=== PATIENT | female | born 1955 | race Caucasian/White ===

== ENCOUNTER 2016-04-10 13:23 | Emergency (ER) | payer OTHER ==
[2016-04-10 14:23] LABS: BASO % 0.4 % (0.0-1.0); EOS # 0.1 K/mm3 (0.0-0.50); EOS % 1.6 % (0.0-3.0); LARGE UNSTAINED CELL # 0.1 K/mm3 (0.0-0.4); LARGE UNSTAINED CELL % 2.5 % (0.0-4.0); LYMPH # 1.1 K/mm3 (1.5-4.5); LYMPH % 22.8 % (24.0-44.0); MEAN CORPUSCULAR HEMOGLOBIN 31.2 pg (27.0-33.0); MEAN CORPUSCULAR HGB CONC 33.1 g/dl (32.0-36.5); MEAN CORPUSCULAR VOLUME 94.2 fl (80.0-96.0); MONO # 0.4 K/mm3 (0.0-0.8); MONO % 7.5 % (0.0-5.0); NEUTROPHILS # 3.3 K/mm3 (1.8-7.7); NEUTROPHILS % 65.2 % (36.0-66.0); PLATELET COUNT, AUTOMATED 263 k/mm3 (150-450); RED CELL DISTRIBUTION WIDTH 11.9 % (11.5-14.5)
[2016-04-10 14:42] LABS: ANION GAP 7 MEQ/L (8-16); BLOOD UREA NITROGEN 14 MG/DL (7-18); CALCIUM LEVEL 8.6 MG/DL (8.8-10.2); CARBON DIOXIDE LEVEL 27 MEQ/L (21-32); CHLORIDE LEVEL 107 MEQ/L (98-107); CREATININE FOR GFR 0.52 MG/DL (0.55-1.02); GLOMERULAR FILTRATION RATE > 60.0 (>45); GLUCOSE, FASTING 96 MG/DL (80-110); MAGNESIUM LEVEL 2.1 MG/DL (1.8-2.4); POTASSIUM SERUM 3.8 MEQ/L (3.5-5.1); SODIUM LEVEL 141 MEQ/L (136-145); T UPTAKE 33 % (30-39); THYROXINE (T4) 12.1 UG/DL (4.5-12.0)
--- NOTE | 2016-04-10 15:16 | REP ---
CHEST X-RAY PA AND LATERAL: 04/10/2016 CLINICAL HISTORY: 60-year-old female with chest pain. No comparison study. FINDINGS: The two-view show the lungs well inflated and clear. CP angles sharply defined. No lateral pleural thickening, apical scarring or pneumothorax. There is no nodular mass. The heart, mediastinal and hilar contours are intact. The aorta is slightly calcified at the arch without aneurysm. Airway intact. The bony thorax shows no compression deformity or focal lesion. No free air under the diaphragm. IMPRESSION: 1. No acute cardiopulmonary change. Signed by Scott Mtz MD 04/10/2016 05:59 P
--- NOTE | 2016-04-10 15:16 | EDDOCDS ---
Nurse's Notes [facility] Name: Deana Ledezma Age: 60 yrs Sex: Female : 1955 Arrival Date: 04/10/2016 Time: 13:23 Bed 21 Private MD: Carmela Ahmadi A Diagnosis: Palpitations Presentation: 04/10 13:40 Presenting complaint: Patient states: palpitations started yesterday- more frequent. srm has had sporadic palpitations over years. denies chest pain. no SOB. today bp going up and HR staying above 100. Adult Sepsis Screening: The patient does not have new or worsening altered mentation. Patient's respiratory rate is less than 22. Systolic blood pressure is greater than 100. Patient has a qSOFA score of 0- Negative Sepsis Screen. Suicide/Homicide risk assessment- the patient denies having any suicidal and/or homicidal ideations and does not present with any other emotional, behavioral or mental health complaints. Status: Patient is not a direct service provider or dependent. Transition of care: patient was not received from another setting of care. 13:40 Acuity: RADHA Level 2 [facility] 13:40 Method Of Arrival: Walkin/Carried/Asstd [facility] Triage Assessment: 13:45 General: Appears in no apparent distress, Behavior is appropriate for age, cooperative. srm Pain: Pain currently is 4 out of 10 on a pain scale. HIV screening NA for this visit Offered previously. Cardiovascular: Rhythm is sinus rhythm. Historical: - Allergies: no known allergies; - Home Meds: 1. levothyroxine 75 mcg Oral tab 1 tab once daily 2. aspirin 81 mg Oral tab 1 tab once daily (Last dose: 04/09/2016 22:00) 3. Restasis 0.05 % ophthalmic dpet 1 drop 2 times per day 4. Nexium 20 mg Oral cpDR prn 5. clobetasol cream couple of times a week - PMHx: Thyroid problem; GERD; Migraine Headaches; - PSHx: ; - Social history: Smoking status: Patient states was never smoker of tobacco. No barriers to communication noted, The patient speaks fluent Romanian, Speaks appropriately for age. - Family history: Not pertinent. - : The pt / caregiver states he / she is not on anticoagulants. Home medication list is obtained from the patient. - Exposure Risk Screening:: None identified. Screenin:09 Screening information is obtained from the patient. Fall risk: No risks identified. pml Assistance ADL's: requires no assistance with activities of daily living. Abuse/DV Screen: The patient / caregiver reports he/she is: not in a situation that causes fear, pain or injury. Nutritional screening: No deficits noted. Advance Directives: Currently, there is no health care proxy. home support is adequate. Assessment: 14:09 General: Appears in no apparent distress, Behavior is appropriate for age, cooperative. pml Pain: Denies pain. Neurological: Level of Consciousness is awake, alert, Oriented to person, place, time. Neurological: Denies dizziness. Cardiovascular: Capillary refill < 3 seconds Rhythm is sinus rhythm. Respiratory: Airway is patent Respiratory effort is even, unlabored, Denies shortness of breath. GI: Abdomen is non- distended Denies nausea. Derm: Skin is pink, warm & dry. 15:14 General: Appears in no apparent distress, comfortable, Behavior is appropriate for age, dsf cooperative. Pain: Denies pain. Neurological: Level of Consciousness is awake, alert. Cardiovascular: Capillary refill < 3 seconds Reports irregular beats. Respiratory: Airway is patent Respiratory effort is even, unlabored, Respiratory pattern is regular, symmetrical. Derm: Skin is pink, warm & dry. Vital Signs: 13:24 BP 157 / 75; Pulse 98; Resp 18 S; Temp 98.1(O); Pulse Ox 99% on R/A; Weight 68.04 kg gr2 (R); Height 5 ft. 3 in. (160.02 cm) (R); Pain 2/10; 15:14 BP 143 / 65; Pulse 90; Resp 18; Temp 98.2(O); Pulse Ox 96% on R/A; lr2 13:24 Body Mass Index 26.57 (68.04 kg, 160.02 cm) gr2 Vitals: 13:24 Log In Time: April 10, 2016 at 13:24. RN notified that patient meets Red Flag gr2 criteria. ED Course: 13:23 Patient visited by Alexei Mancilla. gr2 13:23 Carmela Ahmadi is Private Physician. gr2 13:23 Patient moved to Waiting gr2 13:33 Patient visited by lAexei Mancilla. gr2 13:33 Patient moved to Pre RCE gr2 13:35 Patient moved to 21 [facility] 13:42 Triage Initiated srm 13:45 Patient visited by Aishwarya Mchugh, DEANDRE. srm 13:45 The patient / caregiver is instructed regarding the plan of care and ED course. Patient annita has correct armband on for positive identification. Placed in gown. Bed in low position. Call light in reach. Side rails up X 1. compliance monitor on. Pulse ox on. NIBP on. 13:47 compliance monitor on. Pulse ox on. NIBP on. lr2 13:48 EKG done. (by ED staff). lr2 14:09 Inserted peripheral IV: 20gauge IV in right antecubital area and blood collected. pml Patient tolerated the procedure well. 14:10 Patient visited by Kortney Zaragoza RN. pml 14:18 Michael Thomason FNP is PHCP. ke 14:18 Patient visited by Michael Thomason FNP. ke 14:18 Patient visited by Michael Thomason FNP. ke 14:52 Patient visited by Michael Thomason FNP. ke 15:03 Soham Cedeno is Referral Physician. ke 15:14 Discontinued lock intact, bleeding controlled, pressure dressing applied, No dsf redness/swelling at site. No procedures done that require assistance. 15:15 Patient visited by Racquel Moseley. lr2 Order Results: Lab Order: Basic Metabolic Profile; SPEC'M 04/10/16 14:10 Test: GLUCOSE, FASTING; Value: 96; Range: 80-110; Units: MG/DL; Status: F Test: BLOOD UREA NITROGEN; Value: 14; Range: 7-18; Units: MG/DL; Status: F Test: CREATININE FOR GFR; Value: 0.52; Range: 0.55-1.02; Abnormal: Below low normal; Units: MG/DL; Status: F Test: GLOMERULAR FILTRATION RATE; Value: > 60.0; Range: >45; Status: F Test: SODIUM LEVEL; Value: 141; Range: 136-145; Units: MEQ/L; Status: F Test: POTASSIUM SERUM; Value: 3.8; Range: 3.5-5.1; Units: MEQ/L; Status: F Test: CHLORIDE LEVEL; Value: 107; Range: 98-107; Units: MEQ/L; Status: F Test: CARBON DIOXIDE LEVEL; Value: 27; Range: 21-32; Units: MEQ/L; Status: F Test: ANION GAP; Value: 7; Range: 8-16; Abnormal: Below low normal; Units: MEQ/L; Status: F Test: CALCIUM LEVEL; Value: 8.6; Range: 8.8-10.2; Abnormal: Below low normal; Units: MG/DL; Status: F Test Note: ; Units are mL/min/1.73 m2 Chronic Kidney Disease Staging per NKF: Stage I & II GFR >=60 Normal to Mildly Decreased Stage III GFR 30-59 Moderately Decreased Stage IV GFR 15-29 Severely Decreased Stage V GFR <15 Very Little GFR Left ESRD GFR <15 on FINANCIAL WELLNESS COACH Lab Order: CBC with Diff; SPEC'M 04/10/16 14:10 Test: WHITE BLOOD COUNT; Value: 5.0; Range: 4.0-10.0; Units: K/mm3; Status: F Test: RED BLOOD COUNT; Value: 4.16; Range: 4.00-5.40; Units: M/mm3; Status: F Test: HEMOGLOBIN; Value: 13.0; Range: 12.0-16.0; Units: g/dl; Status: F Test: HEMATOCRIT; Value: 39.2; Range: 36.0-47.0; Units: %; Status: F Test: MEAN CORPUSCULAR VOLUME; Value: 94.2; Range: 80.0-96.0; Units: fl; Status: F Test: MEAN CORPUSCULAR HEMOGLOBIN; Value: 31.2; Range: 27.0-33.0; Units: pg; Status: F Test: MEAN CORPUSCULAR HGB CONC; Value: 33.1; Range: 32.0-36.5; Units: g/dl; Status: F Test: RED CELL DISTRIBUTION WIDTH; Value: 11.9; Range: 11.5-14.5; Units: %; Status: F Test: PLATELET COUNT, AUTOMATED; Value: 263; Range: 150-450; Units: k/mm3; Status: F Test: NEUTROPHILS %; Value: 65.2; Range: 36.0-66.0; Units: %; Status: F Test: LYMPH %; Value: 22.8; Range: 24.0-44.0; Abnormal: Below low normal; Units: %; Status: F Test: MONO %; Value: 7.5; Range: 0.0-5.0; Abnormal: Above high normal; Units: %; Status: F Test: EOS %; Value: 1.6; Range: 0.0-3.0; Units: %; Status: F Test: BASO %; Value: 0.4; Range: 0.0-1.0; Units: %; Status: F Test: LARGE UNSTAINED CELL %; Value: 2.5; Range: 0.0-4.0; Units: %; Status: F Test: NEUTROPHILS #; Value: 3.3; Range: 1.8-7.7; Units: K/mm3; Status: F Test: LYMPH #; Value: 1.1; Range: 1.5-4.5; Abnormal: Below low normal; Units: K/mm3; Status: F Test: MONO #; Value: 0.4; Range: 0.0-0.8; Units: K/mm3; Status: F Test: EOS #; Value: 0.1; Range: 0.0-0.50; Units: K/mm3; Status: F Test: BASO #; Value: 0.0; Range: 0.0-0.2; Units: K/mm3; Status: F Test: LARGE UNSTAINED CELL #; Value: 0.1; Range: 0.0-0.4; Units: K/mm3; Status: F Lab Order: Cardiac Injury Profile; SPEC'M 04/10/16 14:10 Test: CPK CREATINE PHOSPHOKINASE; Value: 79; Range: 26-192; Units: U/L; Status: F Test: CK-MB VALUE MASS; Value: 1.3; Range: 0.0-3.6; Units: NG/ML; Status: F Test: MB/CK RELATIVE INDEX; Value: 1.64; Range: < OR =4; Status: F Test Note: ; DIAGNOSIS CRITERIA MMB ng/ml Relative Index (RI) NON-AMI < or = 5 N/A TERRY ZONE > 5 < or = 4 AMI > 5 > 4 Lab Order: Troponin; SPEC'M 04/10/16 14:10 Test: TROPONIN I; Value: < 0.02; Range: < 0.10; Units: NG/ML; Status: F Test Note: ; Troponin I Reference Interval for [employer] LOCI: 99th Percentile= 0.00-0.045 ng/ml Risk Stratification: <= 0.10 ng/ml Decreased Risk for Adverse Clinical Events. 0.10-1.50 ng/ml Increased Risk for Adverse Clinical Events. Evaluation of additional criterion and/or repeat testing in 2-6 hours is suggested to rule out myocardial damage. >= 1.50 ng/ml Indicative of Myocardial Injury. Lab Order: MAGNESIUM LEVEL; SPEC'M 04/10/16 14:10 Test: MAGNESIUM LEVEL; Value: 2.1; Range: 1.8-2.4; Units: MG/DL; Status: F Lab Order: THYROID PROFILE; SPEC'M 04/10/16 14:10 Test: T UPTAKE; Value: 33; Range: 30-39; Units: %; Status: F Test: THYROXINE (T4); Value: 12.1; Range: 4.5-12.0; Abnormal: Above high normal; Units: UG/DL; Status: F Test: FREE THYROXINE INDEX; Value: 4.0; Range: 1.3-4.8; Units: %; Status: F Test: THYROID STIMULATING HORMONE; Value: 2.020; Range: 0.358-3.740; Units: uIU/ML; Status: F Outcome: 15:04 Discharge ordered by Provider. ke 15:15 Discharge Assessment: Patient awake, alert and oriented x 3. No cognitive and/or dsf functional deficits noted. Patient verbalized understanding of disposition instructions. patient administered narcotics - no. The following High Risk Discharge criteria are identified: None. Discharged to home ambulatory, with significant other. Condition: good. Discharge instructions given to patient, significant other, Instructed on discharge instructions, follow up and referral plans. Demonstrated understanding of instructions, Pt was receptive of discharge instructions/ teaching. No special radiology studies were completed. Property sent home with patient. 15:15 Patient left the ED. dsf Signatures: Aishwarya Mchugh, RN Michael Bartlett FNP FNP ke Fuller, Desiree, RN RN dsf Quay, Paulina, RN RN pml Hafner, Jane, RN RN [facility] Alexei Mancilla 2 Ross, Racquel lr2 MTDD
--- NOTE | 2016-04-10 15:16 | EDDOCDS ---
Physician Documentation [facility] Name: Deana Ledezma Age: 60 yrs Sex: Female : 1955 Arrival Date: 04/10/2016 Time: 13:23 Bed 21 Private MD: Carmela Ahmadi A Disposition: 04/10/16 15:04 Discharged to Home/Self Care. Impression: Palpitations. - Condition is Stable. - Discharge Instructions: Palpitations. - Medication Reconciliation, Local Pharmacy Hours form. - Follow up: Soahm Cedeno; When: Call to arrange an appointment; Reason: Recheck today's complaints, Continuance of care. - Problem is an ongoing problem. - Symptoms are unchanged. Historical: - Allergies: no known allergies; - Home Meds: 1. levothyroxine 75 mcg Oral tab 1 tab once daily 2. aspirin 81 mg Oral tab 1 tab once daily (Last dose: 04/09/2016 22:00) 3. Restasis 0.05 % ophthalmic dpet 1 drop 2 times per day 4. Nexium 20 mg Oral cpDR prn 5. clobetasol cream couple of times a week - PMHx: Thyroid problem; GERD; Migraine Headaches; - PSHx: ; - Social history: Smoking status: Patient states was never smoker of tobacco. No barriers to communication noted, The patient speaks fluent [place], Speaks appropriately for age. - Family history: Not pertinent. - : The pt / caregiver states he / she is not on anticoagulants. Home medication list is obtained from the patient. - Exposure Risk Screening:: None identified. Vital Signs: 04/10 13:24 BP 157 / 75; Pulse 98; Resp 18 S; Temp 98.1(O); Pulse Ox 99% on R/A; Weight 68.04 kg / gr2 150 lbs (R); Height 5 ft. 3 in. (160.02 cm) (R); Pain 2/10; 15:14 BP 143 / 65; Pulse 90; Resp 18; Temp 98.2(O); Pulse Ox 96% on R/A; lr2 13:24 Body Mass Index 26.57 (68.04 kg, 160.02 cm) gr2 MDM: 13:37 ECG WITH READING ER PHYS+CARDIAG ordered. EDMS 14:08 Career And Guidance Counselor/Pulse Ox/q 30 min VS ordered. pml 14:08 IV Saline Lock ordered. pml 14:08 Rhythm Strip to chart ordered. pml 14:08 Undress patient appropriately for examination ordered. pml 14:10 Basic Metabolic Profile Ordered. EDMS 14:10 CBC with Diff Ordered. EDMS 14:10 Cardiac Injury Profile Ordered. EDMS 14:10 Troponin Ordered. EDMS 14:20 Chest, 2 View (pa\E\lat) Ordered. EDMS 14:26 MAGNESIUM LEVEL Ordered. EDMS 14:26 THYROID PROFILE Ordered. EDMS 14:46 Basic Metabolic Profile Reviewed. ke 14:46 CBC with Diff Reviewed. ke 14:46 Troponin Reviewed. ke 14:46 MAGNESIUM LEVEL Reviewed. ke Signatures: Dispatcher [employer] EDAishwarya Henderson, RN RN Michael Lovell, CHIEF CONTROLLER CENTER CHIEF CONTROLLER CENTERLora Swain RN RN dsf Quay, Paulina, RN RN pml The chart was reviewed and I authenticate all verbal orders and agree with the evaluation and treatment provided.Corrections: (The following items were deleted from the chart) 14:26 14:20 THYROID PROFILE+LAB ordered. EDMS EDMS 14:26 14:20 MAGNESIUM LEVEL+LAB ordered. EDMS EDMS MTDD
--- NOTE | 2016-04-11 08:24 | ECGEPIP ---
Stationary ECG Study [facility] - ED Test Date: 2016-04-10 Pat Name: CARLO DOCKERY Department: Room: - Gender: F [id number] Software Engineer: chetan : 1955 Requested By: LEW Wiseman Order Number: [id number] Reading MD: Charlene Gtz Measurements Intervals [place] Rate: 88 P: 59 IN: 150 QRS: -1 QRSD: 82 T: 34 QT: 357 QTc: 434 Interpretive Statements SINUS RHYTHM POSSIBLE LEFT ATRIAL ENLARGEMENT NO PRIOR FOR COMPARISON Electronically Signed On 04-11-2016 8:23:50 EST by Charlene Gtz
--- NOTE | 2016-04-12 16:16 | EDDOCDS ---
Nurse's Notes [facility] Name: Deana Ledezma Age: 60 yrs Sex: Female : 1955 Arrival Date: 04/10/2016 Time: 13:23 Bed 21 Private MD: Carmela Ahmadi A Diagnosis: Palpitations Presentation: 04/10 13:40 Presenting complaint: Patient states: palpitations started yesterday- more frequent. srm has had sporadic palpitations over years. denies chest pain. no SOB. today bp going up and HR staying above 100. Adult Sepsis Screening: The patient does not have new or worsening altered mentation. Patient's respiratory rate is less than 22. Systolic blood pressure is greater than 100. Patient has a qSOFA score of 0- Negative Sepsis Screen. Suicide/Homicide risk assessment- the patient denies having any suicidal and/or homicidal ideations and does not present with any other emotional, behavioral or mental health complaints. Status: Patient is not a product manager financial services or dependent. Transition of care: patient was not received from another setting of care. 13:40 Acuity: RADHA Level 2 [facility] 13:40 Method Of Arrival: Walkin/Carried/Asstd [facility] Triage Assessment: 13:45 General: Appears in no apparent distress, Behavior is appropriate for age, cooperative. srm Pain: Pain currently is 4 out of 10 on a pain scale. HIV screening NA for this visit Offered previously. Cardiovascular: Rhythm is sinus rhythm. Historical: - Allergies: no known allergies; - Home Meds: 1. levothyroxine 75 mcg Oral tab 1 tab once daily 2. aspirin 81 mg Oral tab 1 tab once daily (Last dose: 04/09/2016 22:00) 3. Restasis 0.05 % ophthalmic dpet 1 drop 2 times per day 4. Nexium 20 mg Oral cpDR prn 5. clobetasol cream couple of times a week - PMHx: Thyroid problem; GERD; Migraine Headaches; - PSHx: ; - Social history: Smoking status: Patient states was never smoker of tobacco. No barriers to communication noted, The patient speaks fluent Czech, Speaks appropriately for age. - Family history: Not pertinent. - : The pt / caregiver states he / she is not on anticoagulants. Home medication list is obtained from the patient. - Exposure Risk Screening:: None identified. Screenin:09 Screening information is obtained from the patient. Fall risk: No risks identified. pml Assistance ADL's: requires no assistance with activities of daily living. Abuse/DV Screen: The patient / caregiver reports he/she is: not in a situation that causes fear, pain or injury. Nutritional screening: No deficits noted. Advance Directives: Currently, there is no health care proxy. home support is adequate. Assessment: 14:09 General: Appears in no apparent distress, Behavior is appropriate for age, cooperative. pml Pain: Denies pain. Neurological: Level of Consciousness is awake, alert, Oriented to person, place, time. Neurological: Denies dizziness. Cardiovascular: Capillary refill < 3 seconds Rhythm is sinus rhythm. Respiratory: Airway is patent Respiratory effort is even, unlabored, Denies shortness of breath. GI: Abdomen is non- distended Denies nausea. Derm: Skin is pink, warm & dry. 15:14 General: Appears in no apparent distress, comfortable, Behavior is appropriate for age, dsf cooperative. Pain: Denies pain. Neurological: Level of Consciousness is awake, alert. Cardiovascular: Capillary refill < 3 seconds Reports irregular beats. Respiratory: Airway is patent Respiratory effort is even, unlabored, Respiratory pattern is regular, symmetrical. Derm: Skin is pink, warm & dry. Vital Signs: 13:24 BP 157 / 75; Pulse 98; Resp 18 S; Temp 98.1(O); Pulse Ox 99% on R/A; Weight 68.04 kg gr2 (R); Height 5 ft. 3 in. (160.02 cm) (R); Pain 2/10; 15:14 BP 143 / 65; Pulse 90; Resp 18; Temp 98.2(O); Pulse Ox 96% on R/A; lr2 13:24 Body Mass Index 26.57 (68.04 kg, 160.02 cm) gr2 Vitals: 13:24 Log In Time: April 10, 2016 at 13:24. RN notified that patient meets Red Flag gr2 criteria. ED Course: 13:23 Patient visited by Alexei Mancilla. gr2 13:23 Carmela Ahmadi is Private Physician. gr2 13:23 Patient moved to Waiting gr2 13:33 Patient visited by Alexei Mancilla. gr2 13:33 Patient moved to Pre RCE gr2 13:35 Patient moved to 21 [facility] 13:42 Triage Initiated srm 13:45 Patient visited by Aishwarya Mchugh, DEANDRE. srm 13:45 The patient / caregiver is instructed regarding the plan of care and ED course. Patient annita has correct armband on for positive identification. Placed in gown. Bed in low position. Call light in reach. Side rails up X 1. classroom monitor on. Pulse ox on. NIBP on. 13:47 classroom monitor on. Pulse ox on. NIBP on. lr2 13:48 EKG done. (by ED staff). lr2 14:09 Inserted peripheral IV: 20gauge IV in right antecubital area and blood collected. pml Patient tolerated the procedure well. 14:10 Patient visited by Kortney Zaragoza,DEANDRE. pml 14:18 Michael Thomason FNP is PHCP. ke 14:18 Patient visited by Michael Thomason FNP. ke 14:18 Patient visited by Michael Thomason FNP. ke 14:52 Patient visited by Michael Thomason FNP. ke 15:03 Soham Cedeno is Referral Physician. ke 15:14 Discontinued lock intact, bleeding controlled, pressure dressing applied, No dsf redness/swelling at site. No procedures done that require assistance. 15:15 Patient visited by Racquel Moseley. lr2 15:17 Chest, 2 View (pa\E\lat) Returned. EDMS 15:46 [facility] Payment Agreement was scanned into [employer] and attached to record. lg 15:58 T-Sheet-- Draft Copy was scanned into [employer] and attached to record. klr 04/11 08:57 EKG-ADULT Returned. EDMS 10:11 ECG/EKG was scanned into [employer] and attached to record. gb 10:11 Trend VS was scanned into [employer] and attached to record. gb Attachments: 10:11 Trend VS gb Order Results: Lab Order: Basic Metabolic Profile; SPEC'M 04/10/16 14:10 Test: GLUCOSE, FASTING; Value: 96; Range: 80-110; Units: MG/DL; Status: F Test: BLOOD UREA NITROGEN; Value: 14; Range: 7-18; Units: MG/DL; Status: F Test: CREATININE FOR GFR; Value: 0.52; Range: 0.55-1.02; Abnormal: Below low normal; Units: MG/DL; Status: F Test: GLOMERULAR FILTRATION RATE; Value: > 60.0; Range: >45; Status: F Test: SODIUM LEVEL; Value: 141; Range: 136-145; Units: MEQ/L; Status: F Test: POTASSIUM SERUM; Value: 3.8; Range: 3.5-5.1; Units: MEQ/L; Status: F Test: CHLORIDE LEVEL; Value: 107; Range: 98-107; Units: MEQ/L; Status: F Test: CARBON DIOXIDE LEVEL; Value: 27; Range: 21-32; Units: MEQ/L; Status: F Test: ANION GAP; Value: 7; Range: 8-16; Abnormal: Below low normal; Units: MEQ/L; Status: F Test: CALCIUM LEVEL; Value: 8.6; Range: 8.8-10.2; Abnormal: Below low normal; Units: MG/DL; Status: F Test Note: ; Units are mL/min/1.73 m2 Chronic Kidney Disease Staging per NKF: Stage I & II GFR >=60 Normal to Mildly Decreased Stage III GFR 30-59 Moderately Decreased Stage IV GFR 15-29 Severely Decreased Stage V GFR <15 Very Little GFR Left ESRD GFR <15 on DIRECTOR PROSPECT Lab Order: CBC with Diff; SPEC'M 04/10/16 14:10 Test: WHITE BLOOD COUNT; Value: 5.0; Range: 4.0-10.0; Units: K/mm3; Status: F Test: RED BLOOD COUNT; Value: 4.16; Range: 4.00-5.40; Units: M/mm3; Status: F Test: HEMOGLOBIN; Value: 13.0; Range: 12.0-16.0; Units: g/dl; Status: F Test: HEMATOCRIT; Value: 39.2; Range: 36.0-47.0; Units: %; Status: F Test: MEAN CORPUSCULAR VOLUME; Value: 94.2; Range: 80.0-96.0; Units: fl; Status: F Test: MEAN CORPUSCULAR HEMOGLOBIN; Value: 31.2; Range: 27.0-33.0; Units: pg; Status: F Test: MEAN CORPUSCULAR HGB CONC; Value: 33.1; Range: 32.0-36.5; Units: g/dl; Status: F Test: RED CELL DISTRIBUTION WIDTH; Value: 11.9; Range: 11.5-14.5; Units: %; Status: F Test: PLATELET COUNT, AUTOMATED; Value: 263; Range: 150-450; Units: k/mm3; Status: F Test: NEUTROPHILS %; Value: 65.2; Range: 36.0-66.0; Units: %; Status: F Test: LYMPH %; Value: 22.8; Range: 24.0-44.0; Abnormal: Below low normal; Units: %; Status: F Test: MONO %; Value: 7.5; Range: 0.0-5.0; Abnormal: Above high normal; Units: %; Status: F Test: EOS %; Value: 1.6; Range: 0.0-3.0; Units: %; Status: F Test: BASO %; Value: 0.4; Range: 0.0-1.0; Units: %; Status: F Test: LARGE UNSTAINED CELL %; Value: 2.5; Range: 0.0-4.0; Units: %; Status: F Test: NEUTROPHILS #; Value: 3.3; Range: 1.8-7.7; Units: K/mm3; Status: F Test: LYMPH #; Value: 1.1; Range: 1.5-4.5; Abnormal: Below low normal; Units: K/mm3; Status: F Test: MONO #; Value: 0.4; Range: 0.0-0.8; Units: K/mm3; Status: F Test: EOS #; Value: 0.1; Range: 0.0-0.50; Units: K/mm3; Status: F Test: BASO #; Value: 0.0; Range: 0.0-0.2; Units: K/mm3; Status: F Test: LARGE UNSTAINED CELL #; Value: 0.1; Range: 0.0-0.4; Units: K/mm3; Status: F Lab Order: Cardiac Injury Profile; SPEC'M 04/10/16 14:10 Test: CPK CREATINE PHOSPHOKINASE; Value: 79; Range: 26-192; Units: U/L; Status: F Test: CK-MB VALUE MASS; Value: 1.3; Range: 0.0-3.6; Units: NG/ML; Status: F Test: MB/CK RELATIVE INDEX; Value: 1.64; Range: < OR =4; Status: F Test Note: ; DIAGNOSIS CRITERIA MMB ng/ml Relative Index (RI) NON-AMI < or = 5 N/A TERRY ZONE > 5 < or = 4 AMI > 5 > 4 Lab Order: Troponin; [facility]' 04/10/16 14:10 Test: TROPONIN I; Value: < 0.02; Range: < 0.10; Units: NG/ML; Status: F Test Note: ; Troponin I Reference Interval for [employer] LOCI: 99th Percentile= 0.00-0.045 ng/ml Risk Stratification: <= 0.10 ng/ml Decreased Risk for Adverse Clinical Events. 0.10-1.50 ng/ml Increased Risk for Adverse Clinical Events. Evaluation of additional criterion and/or repeat testing in 2-6 hours is suggested to rule out myocardial damage. >= 1.50 ng/ml Indicative of Myocardial Injury. Lab Order: MAGNESIUM LEVEL; [facility]' 04/10/16 14:10 Test: MAGNESIUM LEVEL; Value: 2.1; Range: 1.8-2.4; Units: MG/DL; Status: F Lab Order: THYROID PROFILE; [facility]' 04/10/16 14:10 Test: T UPTAKE; Value: 33; Range: 30-39; Units: %; Status: F Test: THYROXINE (T4); Value: 12.1; Range: 4.5-12.0; Abnormal: Above high normal; Units: UG/DL; Status: F Test: FREE THYROXINE INDEX; Value: 4.0; Range: 1.3-4.8; Units: %; Status: F Test: THYROID STIMULATING HORMONE; Value: 2.020; Range: 0.358-3.740; Units: uIU/ML; Status: F Radiology Order: EKG-ADULT Test: EKG-ADULT REASON FOR EXAMINATION: palpitaions; Stationary ECG Study; [facility] - ED; ; Test Date: 2016-04-10; Pat Name: DEANA LEDEZMA Department:; Room: -; Gender: F It Training Specialist: chetan; : 1955 Requested By: LEW Wiseman; Order Number: [id number] Reading MD: Charlene Gtz; Measurements; Intervals [place]; Rate: 88 P: 59; CO: 150 QRS: -1; QRSD: 82 T: 34; QT: 357; QTc: 434; Interpretive Statements; SINUS RHYTHM; POSSIBLE LEFT ATRIAL ENLARGEMENT; NO PRIOR FOR COMPARISON; Electronically Signed On 04-11-2016 8:23:50 EST by Charlene Gtz; Radiology Order: Chest, 2 View (pa\E\lat) Test: Chest, 2 View (pa\E\lat) REASON FOR EXAMINATION: Chest Pain; CHEST X-RAY PA AND LATERAL: 04/10/2016; ; CLINICAL HISTORY: 60-year-old female with chest pain.; ; No comparison study.; ; FINDINGS: The two-view show the lungs well inflated and clear. CP angles; sharply defined. No lateral pleural thickening, apical scarring or pneumothorax.; There is no nodular mass. The heart, mediastinal and hilar contours are intact.; The aorta is slightly calcified at the arch without aneurysm. Airway intact. The; bony thorax shows no compression deformity or focal lesion. No free air under the; diaphragm.; ; IMPRESSION:; ; 1. No acute cardiopulmonary change.; ; ; ; ; ; ; Signed by; Scott Mtz MD 04/10/2016 05:59 P; Outcome: 04/10 15:04 Discharge ordered by Provider. tino 15:15 Discharge Assessment: Patient awake, alert and oriented x 3. No cognitive and/or dsf functional deficits noted. Patient verbalized understanding of disposition instructions. patient administered narcotics - no. The following High Risk Discharge criteria are identified: None. Discharged to home ambulatory, with significant other. Condition: good. Discharge instructions given to patient, significant other, Instructed on discharge instructions, follow up and referral plans. Demonstrated understanding of instructions, Pt was receptive of discharge instructions/ teaching. No special radiology studies were completed. Property sent home with patient. 15:15 Patient left the ED. dsf Signatures: Dispatcher [employer] EDMS Aishwarya Mchugh, DEANDRE RN srm Vasu, Christi, Reg Reg gb Kristina Rajput, Reg Reg lg Michael Thomason, FOOD SERVICE STEWARD Lora Lenz RN RN Kortney Escobar,RN RN pml Chely FaganRN RN [facility] Alexei Mancilla 2 Eduarda Mehta Laura lr2 Chart Complete MTDD
--- NOTE | 2016-04-12 16:16 | EDDOCDS ---
Physician Documentation [facility] Name: Deana Ledezma Age: 60 yrs Sex: Female : 1955 Arrival Date: 04/10/2016 Time: 13:23 Bed 21 Private MD: Carmela Ahmadi A Disposition: 04/10/16 15:04 Discharged to Home/Self Care. Impression: Palpitations. - Condition is Stable. - Discharge Instructions: Palpitations. - Medication Reconciliation, Local Pharmacy Hours form. - Follow up: Soham Cedeno; When: Call to arrange an appointment; Reason: Recheck today's complaints, Continuance of care. - Problem is an ongoing problem. - Symptoms are unchanged. Historical: - Allergies: no known allergies; - Home Meds: 1. levothyroxine 75 mcg Oral tab 1 tab once daily 2. aspirin 81 mg Oral tab 1 tab once daily (Last dose: 04/09/2016 22:00) 3. Restasis 0.05 % ophthalmic dpet 1 drop 2 times per day 4. Nexium 20 mg Oral cpDR prn 5. clobetasol cream couple of times a week - PMHx: Thyroid problem; GERD; Migraine Headaches; - PSHx: ; - Social history: Smoking status: Patient states was never smoker of tobacco. No barriers to communication noted, The patient speaks fluent Montserratian, Speaks appropriately for age. - Family history: Not pertinent. - : The pt / caregiver states he / she is not on anticoagulants. Home medication list is obtained from the patient. - Exposure Risk Screening:: None identified. Vital Signs: 04/10 13:24 BP 157 / 75; Pulse 98; Resp 18 S; Temp 98.1(O); Pulse Ox 99% on R/A; Weight 68.04 kg / gr2 150 lbs (R); Height 5 ft. 3 in. (160.02 cm) (R); Pain 2/10; 15:14 BP 143 / 65; Pulse 90; Resp 18; Temp 98.2(O); Pulse Ox 96% on R/A; lr2 13:24 Body Mass Index 26.57 (68.04 kg, 160.02 cm) gr2 MDM: 13:37 ECG WITH READING ER PHYS+CARDIAG ordered. EDMS 14:08 Dental Instrument Maker/Pulse Ox/q 30 min VS ordered. pml 14:08 IV Saline Lock ordered. pml 14:08 Rhythm Strip to chart ordered. pml 14:08 Undress patient appropriately for examination ordered. pml 14:10 Basic Metabolic Profile Ordered. EDMS 14:10 CBC with Diff Ordered. EDMS 14:10 Cardiac Injury Profile Ordered. EDMS 14:10 Troponin Ordered. EDMS 14:20 Chest, 2 View (pa\E\lat) Ordered. EDMS 14:26 MAGNESIUM LEVEL Ordered. EDMS 14:26 THYROID PROFILE Ordered. EDMS 14:46 Basic Metabolic Profile Reviewed. ke 14:46 CBC with Diff Reviewed. ke 14:46 Troponin Reviewed. ke 14:46 MAGNESIUM LEVEL Reviewed. ke 15:46 [facility] Payment Agreement was scanned into [employer] and attached to record. lg 15:58 T-Sheet-- Draft Copy was scanned into [employer] and attached to record. r 04/11 10:11 ECG/EKG was scanned into [employer] and attached to record. gb 10:11 Trend VS was scanned into [employer] and attached to record. gb Signatures: Dispatcher [employer] EDAishwarya Henderson, RN DEANDRE [facility] Vasu, Christi, Reg Reg gb Kristina Rajput, Reg Reg lg Michael Thomason, SPECIAL WARFARE OPERATOR SPECIAL WARFARE OPERATOR Lora Singer RN RN dsf Quay, Paulina, RN RN pml Redder, Kathie klr The chart was reviewed and I authenticate all verbal orders and agree with the evaluation and treatment provided.Corrections: (The following items were deleted from the chart) 04/10 14:26 14:20 THYROID PROFILE+LAB ordered. EDMS EDMS 14:26 14:20 MAGNESIUM LEVEL+LAB ordered. EDNC EDMS Attachments: 15:46 [facility] Payment Agreement lg 15:58 T-Sheet-- Draft Copy r 04/11 10:11 ECG/EKG gb Chart Complete MTDD
--- NOTE | 2016-04-12 16:16 | EDDOCDS ---
Physician Documentation [facility] Name: Deana Ledezma Age: 60 yrs Sex: Female : 1955 Arrival Date: 04/10/2016 Time: 13:23 Bed 21 Private MD: Carmela Ahmadi A Disposition: 04/10/16 15:04 Discharged to Home/Self Care. Impression: Palpitations. - Condition is Stable. - Discharge Instructions: Palpitations. - Medication Reconciliation, Local Pharmacy Hours form. - Follow up: Soham Cedeno; When: Call to arrange an appointment; Reason: Recheck today's complaints, Continuance of care. - Problem is an ongoing problem. - Symptoms are unchanged. Historical: - Allergies: no known allergies; - Home Meds: 1. levothyroxine 75 mcg Oral tab 1 tab once daily 2. aspirin 81 mg Oral tab 1 tab once daily (Last dose: 04/09/2016 22:00) 3. Restasis 0.05 % ophthalmic dpet 1 drop 2 times per day 4. Nexium 20 mg Oral cpDR prn 5. clobetasol cream couple of times a week - PMHx: Thyroid problem; GERD; Migraine Headaches; - PSHx: ; - Social history: Smoking status: Patient states was never smoker of tobacco. No barriers to communication noted, The patient speaks fluent Faroese, Speaks appropriately for age. - Family history: Not pertinent. - : The pt / caregiver states he / she is not on anticoagulants. Home medication list is obtained from the patient. - Exposure Risk Screening:: None identified. Vital Signs: 04/10 13:24 BP 157 / 75; Pulse 98; Resp 18 S; Temp 98.1(O); Pulse Ox 99% on R/A; Weight 68.04 kg / gr2 150 lbs (R); Height 5 ft. 3 in. (160.02 cm) (R); Pain 2/10; 15:14 BP 143 / 65; Pulse 90; Resp 18; Temp 98.2(O); Pulse Ox 96% on R/A; lr2 13:24 Body Mass Index 26.57 (68.04 kg, 160.02 cm) gr2 MDM: 13:37 ECG WITH READING ER PHYS+CARDIAG ordered. EDMS 14:08 Hotel Room Attendant/Pulse Ox/q 30 min VS ordered. pml 14:08 IV Saline Lock ordered. pml 14:08 Rhythm Strip to chart ordered. pml 14:08 Undress patient appropriately for examination ordered. pml 14:10 Basic Metabolic Profile Ordered. EDMS 14:10 CBC with Diff Ordered. EDMS 14:10 Cardiac Injury Profile Ordered. EDMS 14:10 Troponin Ordered. EDMS 14:20 Chest, 2 View (pa\E\lat) Ordered. EDMS 14:26 MAGNESIUM LEVEL Ordered. EDMS 14:26 THYROID PROFILE Ordered. EDMS 14:46 Basic Metabolic Profile Reviewed. ke 14:46 CBC with Diff Reviewed. ke 14:46 Troponin Reviewed. ke 14:46 MAGNESIUM LEVEL Reviewed. ke 15:46 [facility] Payment Agreement was scanned into [employer] and attached to record. lg 15:58 T-Sheet-- Draft Copy was scanned into [employer] and attached to record. r 04/11 10:11 ECG/EKG was scanned into [employer] and attached to record. gb 10:11 Trend VS was scanned into [employer] and attached to record. gb Signatures: Dispatcher [employer] EDAishwarya Henderson, RN DEANDRE [facility] Vasu, Christi, Reg Reg gb Kristina Rajput, Reg Reg lg Michael Thomason, CHEMICAL TREATMENT OPERATOR CHEMICAL TREATMENT OPERATOR Lora Singer RN RN dsf Quay, Paulina, RN RN pml Redder, Kathie klr The chart was reviewed and I authenticate all verbal orders and agree with the evaluation and treatment provided.Corrections: (The following items were deleted from the chart) 04/10 14:26 14:20 THYROID PROFILE+LAB ordered. EDMS EDMS 14:26 14:20 MAGNESIUM LEVEL+LAB ordered. EDDE EDMS Attachments: 15:46 [facility] Payment Agreement lg 15:58 T-Sheet-- Draft Copy r 04/11 10:11 ECG/EKG gb Chart Complete MTDD
== END 2016-04-10 15:15 | disposition home or self-care (01) ==
LOC: M ED 13:23
DX: I49.1 Atrial premature depolarization (principal); R00.2 Palpitations; E07.9 Disorder of thyroid, unspecified; K21.9 Gastro-esophageal reflux disease without esophagitis; G43.909 Migraine, unspecified, not intractable, without status migrainosus; Z79.82 Long term (current) use of aspirin; Z79.899 Other long term (current) drug therapy

== ENCOUNTER → 2016-07-25 | Outpatient (REF) | payer OTHER | LOC: M LAB REF 17:00 | PROVIDERS: ATTEND Family Medicine | DX: L60.3 Nail dystrophy (principal) ==

== ENCOUNTER → 2016-10-15 | Outpatient (REF) | payer OTHER ==
[2016-10-15 19:07] LABS: ALBUMIN 4.4 GM/DL (3.2-5.2); ALBUMIN/GLOBULIN RATIO 1.47 (1.00-1.93); BILIRUBIN,DIRECT 0.1 MG/DL (0.0-0.2); BILIRUBIN,TOTAL 0.5 MG/DL (0.2-1.0); TOTAL PROTEIN 7.4 GM/DL (6.4-8.2)
== END ==
LOC: M LABDRAWC 17:45
PROVIDERS: ATTEND Podiatrist
DX: Z00.00 Encounter for general adult medical examination without abnormal findings (principal)

== ENCOUNTER → 2017-09-24 | Outpatient (REF) | payer OTHER ==
[2017-09-25 13:34] LABS: COMPLEMENT C3 79.3 MG/DL (90-180); IMMUNOGLOBULIN A 62.4 MG/DL (70-400); IMMUNOGLOBULIN G 638 MG/DL (681-1648); IMMUNOGLOBULIN M 86.3 MG/DL (40-230)
[2017-09-28 14:33] LABS: ALPHA 1 ANTITRYPSIN 159 mg/dL (90-200)
[2017-09-28 14:33] LABS: D001-IgE D pteronyssinus 1.47 kU/L (Class III); E001-IgE Cat Epith/Dander < 0.10 kU/L (Class 0); E005-IgE Dog Dander 1.28 kU/L (Class II); F002-IgE Milk < 0.10 kU/L (Class 0); F004-IgE Wheat < 0.10 kU/L (Class 0); F013-IgE Peanut < 0.10 kU/L (Class 0); F014-IgE Soybean < 0.10 kU/L (Class 0); F027-IgE Beef 0.28 kU/L (Class 0/I); F245-IgE Egg, Whole < 0.10 kU/L (Class 0); FX02-IgE Food Mix (Sea Foods) Negative (.); G002-IgE Bermuda Grass < 0.10 kU/L (Class 0); G008-IgE Kentucky Bluegrass < 0.10 kU/L (Class 0); M001-IgE Penicillium chrysogen 0.15 kU/L (Class 0/I); M002 IgE Cladosporium herbaru < 0.10 kU/L (Class 0); M003 IgE Aspergillus fumigatu < 0.10 kU/L (Class 0); M006-IgE Alternaria alternata < 0.10 kU/L (Class 0); T001-IgE Maple/Box Elder < 0.10 kU/L (Class 0); T003-IgE Common Silver Birch < 0.10 kU/L (Class 0); T006-IgE Cedar, Mountain < 0.10 kU/L (Class 0); T007-IgE Oak, White < 0.10 kU/L (Class 0); T008-IgE Elm, American < 0.10 kU/L (Class 0); T015-IgE Ash, White < 0.10 kU/L (Class 0); T041-IgE Hickory, White < 0.10 kU/L (Class 0); T070-IgE White Mulberry < 0.10 kU/L (Class 0); W001-IgE Ragweed, Short < 0.10 kU/L (Class 0); W009-IgE Plantain, English < 0.10 kU/L (Class 0); W014-IgE Pigweed, Rough < 0.10 kU/L (Class 0); W018-IgE Sheep Sorrel < 0.10 kU/L (Class 0)
== END ==
LOC: M LABDRAWC 11:41
DX: J30.1 Allergic rhinitis due to pollen (principal); J30.81 Allergic rhinitis due to animal (cat) (dog) hair and dander; J30.89 Other allergic rhinitis; H10.45 Other chronic allergic conjunctivitis; J32.0 Chronic maxillary sinusitis; R05 Cough

== ENCOUNTER → 2018-06-13 | Outpatient (REF) | payer OTHER ==
[2018-06-13 11:58] LABS: BASO % 0.6 % (0.0-1.0); EOS # 0.2 10^3/uL (0.0-0.50); EOS % 3.1 % (0.0-3.0); HEMATOCRIT 40.3 % (36.0-47.0); HEMOGLOBIN 13.5 g/dl (12.0-15.5); LYMPH # 1.6 10^3/uL (1.5-4.5); MEAN CORPUSCULAR HEMOGLOBIN 31.4 pg (27.0-33.0); MEAN CORPUSCULAR HGB CONC 33.5 g/dl (32.0-36.5); MEAN CORPUSCULAR VOLUME 93.7 fl (80.0-96.0); MONO # 0.5 10^3/uL (0.0-0.8); MONO % 10.7 % (0.0-5.0); NEUTROPHILS # 2.6 10^3/uL (1.8-7.7); NEUTROPHILS % 53.4 % (36.0-66.0); PLATELET COUNT, AUTOMATED 266 10^3/uL (150-450); WHITE BLOOD COUNT 4.9 10^3/uL (4.0-10.0)
[2018-06-13 12:12] LABS: ALBUMIN 4.3 GM/DL (3.2-5.2); ALT/SGPT 29 U/L (12-78); BILIRUBIN,TOTAL 0.4 MG/DL (0.2-1.0); BLOOD UREA NITROGEN 17 MG/DL (7-18); CALCIUM LEVEL 8.5 MG/DL (8.8-10.2); CARBON DIOXIDE LEVEL 28 MEQ/L (21-32); CHLORIDE LEVEL 103 MEQ/L (98-107); CHOLESTEROL LEVEL 208 MG/DL (<200); CHOLESTEROL RISK RATIO 3.301 (<5); CREATININE FOR GFR 0.59 MG/DL (0.55-1.30); GLOMERULAR FILTRATION RATE > 60.0 (>45); GLUCOSE, FASTING 93 MG/DL (70-100); HDL CHOLESTEROL 63 MG/DL (>40); LDL CHOLESTEROL 130 MG/DL (<100); NON-HDL-C 145 MG/DL; POTASSIUM SERUM 3.5 MEQ/L (3.5-5.1); SODIUM LEVEL 140 MEQ/L (136-145); TOTAL PROTEIN 6.9 GM/DL (6.4-8.2); TRIGLYCERIDES LEVEL 77 MG/DL (<150)
== END ==
LOC: M LABDRAWC 11:29
PROVIDERS: ATTEND Family Medicine
DX: Z00.00 Encounter for general adult medical examination without abnormal findings (principal); E03.9 Hypothyroidism, unspecified

== ENCOUNTER → 2018-06-15 | Outpatient (CLI) | payer OTHER ==
--- NOTE | 2018-06-17 07:22 | SLEEPCENT ---
DATE OF PROCEDURE: 06/15/2018 ORDERED BY: [place]. Nocturnal polysomnography was performed for evaluation of sleep physiology in this patient with a history of excessive somnolence, insomnia and nonrestorative sleep. 6 hours and 55 minutes of data were reviewed. They were 200 minutes of sleep identified. Sleep latency was prolonged at 138 minutes. REM latency was normal at 95 minutes. Sleep architecture was fair with only one REM cycle noted. Overall sleep efficiency was 48.8 due to wake after sleep onset. The electrocardiogram showed sinus rhythm with an average heart rate of 66 beats per minute. Rate ranged 60-85. EEG showed essentially normal waveforms for awake and sleep. There were only 14 respiratory events identified of 10 seconds in duration or greater for a respiratory apnea-hypopnea index of 4.2. Some snoring was noted however and respiratory related arousals occurred 5.7 times per hour. There was minimal activity in the limb leads. Saturations remained normal. IMPRESSION: Normal nocturnal polysomnography with snoring. RECOMMENDATIONS: Interventions to optimize upper airway tone and reduce snoring may improve sleep architecture given respiratory event arousal index of 5.7.
== END ==
LOC: M SLEEP 20:00
PROVIDERS: ATTEND Physician Assistant
DX: R06.83 Snoring (principal)

== ENCOUNTER → 2019-10-08 | Outpatient (REF) | payer MEDICARE, OTHER ==
[2019-11-03 22:41] LABS: BASO % 0.7 % (0.0-1.0); EOS # 0.2 10^3/uL (0.0-0.5); EOS % 3.6 % (0.0-3.0); HEMATOCRIT 40.6 % (36.0-47.0); HEMOGLOBIN 13.2 g/dl (12.0-15.5); LYMPH # 1.8 10^3/uL (1.5-5.0); MEAN CORPUSCULAR HEMOGLOBIN 31.1 pg (27.0-33.0); MEAN CORPUSCULAR HGB CONC 32.5 g/dl (32.0-36.5); MEAN CORPUSCULAR VOLUME 95.5 fl (80.0-96.0); MONO # 0.4 10^3/uL (0.0-0.8); MONO % 9.5 % (0.0-5.0); NEUTROPHILS % 44.7 % (36.0-66.0); PLATELET COUNT, AUTOMATED 292 10^3/uL (150-450); RED BLOOD COUNT 4.25 10^6/uL (4.00-5.40); WHITE BLOOD COUNT 4.4 10^3/uL (4.0-10.0)
[2019-11-15 07:24] LABS: CHOLESTEROL RISK RATIO 3.442 (<5); FREE T4 1.3 NG/DL (0.76-1.46); THYROID STIMULATING HORMONE 3.67 uIU/ML (0.358-3.740)
== END ==
LOC: M LABDRAWC 15:58
PROVIDERS: ATTEND Family Medicine
DX: Z00.00 Encounter for general adult medical examination without abnormal findings (principal); E03.9 Hypothyroidism, unspecified

== ENCOUNTER → 2020-04-29 | Outpatient (CLI) | payer MEDICARE, OTHER | LOC: M LABSMTC 12:33 | PROVIDERS: ATTEND Dentist Endodontics | DX: Z20.822 Contact with and (suspected) exposure to COVID-19 (principal) ==

== ENCOUNTER → 2020-10-11 | Outpatient (REF) | payer MEDICARE, OTHER ==
[2020-10-11 18:20] LABS: BASO % 0.9 % (0.0-1.0); EOS # 0.1 10^3/uL (0.0-0.5); EOS % 1.5 % (0.0-3.0); HEMATOCRIT 41.1 % (36.0-47.0); HEMOGLOBIN 13.4 g/dl (12.0-15.5); LYMPH # 1.5 10^3/uL (1.5-5.0); LYMPH % 31.8 % (24.0-44.0); MEAN CORPUSCULAR HEMOGLOBIN 31.3 pg (27.0-33.0); MEAN CORPUSCULAR HGB CONC 32.6 g/dl (32.0-36.5); MONO # 0.6 10^3/uL (0.0-0.8); NEUTROPHILS # 2.5 10^3/uL (1.5-8.5); NEUTROPHILS % 53.6 % (36.0-66.0); PLATELET COUNT, AUTOMATED 284 10^3/uL (150-450); RED BLOOD COUNT 4.28 10^6/uL (4.00-5.40); WHITE BLOOD COUNT 4.6 10^3/uL (4.0-10.0)
[2020-10-11 18:51] LABS: ALBUMIN 4.2 GM/DL (3.2-5.2); ALT/SGPT 25 U/L (12-78); BILIRUBIN,TOTAL 0.4 MG/DL (0.2-1.0); BLOOD UREA NITROGEN 14 MG/DL (7-18); CALCIUM LEVEL 9.3 MG/DL (8.8-10.2); CARBON DIOXIDE LEVEL 29 MEQ/L (21-32); CHLORIDE LEVEL 106 MEQ/L (98-107); CHOLESTEROL LEVEL 243 MG/DL (<200); CHOLESTEROL RISK RATIO 3.681 (<5); CREATININE FOR GFR 0.48 MG/DL (0.55-1.30); FREE T4 1.18 NG/DL (0.76-1.46); GLOMERULAR FILTRATION RATE > 60.0 (>45); GLUCOSE, FASTING 89 MG/DL (70-100); HDL CHOLESTEROL 66 MG/DL (>40); LDL CHOLESTEROL 160 MG/DL (<100); NON-HDL-C 177 MG/DL; POTASSIUM SERUM 4.1 MEQ/L (3.5-5.1); SODIUM LEVEL 142 MEQ/L (136-145); TRIGLYCERIDES LEVEL 86 MG/DL (<150)
== END ==
LOC: M SFHCCLAY 10:29
PROVIDERS: ATTEND Family Medicine
DX: E03.9 Hypothyroidism, unspecified (principal); G43.109 Migraine with aura, not intractable, without status migrainosus; E78.00 Pure hypercholesterolemia, unspecified; J30.9 Allergic rhinitis, unspecified
CPT/HCPCS: 80053; 80061; 84439; 84443; 85025; G0463

== ENCOUNTER → 2020-11-10 | Outpatient (CLI) | payer MEDICARE, OTHER | LOC: M CLY 15:42 | PROVIDERS: ATTEND Family Medicine | DX: S59.909A Unspecified injury of unspecified elbow, initial encounter (principal); W18.30XA Fall on same level, unspecified, initial encounter; Y92.009 Unspecified place in unspecified non-institutional (private) residence as the place of occurrence of the external cause ==

== ENCOUNTER → 2021-01-09 | Outpatient (CLI) | payer MEDICARE, OTHER ==
--- NOTE | 2021-01-09 15:19 | REPMRS ---
Patient History The patient states she had a clinical breast exam in November 2020. Patient is postmenopausal. Family history of breast cancer at age 70 in mother. Patient states no breast complaints today. Patient has signed MRS History Sheet. Digital Woman Screen Mammo: January 09, 2021 - Exam #: [id number] Bilateral CC and MLO view(s) were taken. Technologist: Lucia Whittington, Technologist Prior study comparison: November 24, 2019, bilateral digital mammo screening bilat, performed at [facility]. September 24, 2018, bilateral digital mammo screening bilat, performed at [facility]. July 31, 2017, bilateral digital mammo screening bilat, performed at [facility]. FINDINGS: There are scattered fibroglandular densities. Screening. Digital screening (2D) mammography was performed bilaterally in the CC and MLO projections. Additionally, breast tomosynthesis (3D mammography) was performed bilaterally in the CC and MLO projections. Todays exam was compared to the prior exam/exams. By history, the patient has no complaints of a palpable breast abnormality or other significant breast complaints. The breasts are unchanged in size and shape. There are no gerri-soft tissue densities or spiculated masses. There is no internal architectural distortion.Once again, stable benign appearing calcifications are seen. There are no suspicious gerri-calcific clusters. Skin thickening or nipple retraction is not present. IMPRESSION: BI-RADS Category 2- Benign Findings. There is no evidence of malignant alteration of the breasts. Followup examination recommended in one year. The Volpara volumetric breast density category is B, there are scattered areas of fibroglandular densities. This mammogram was read with the assistance of [facility] [employer],an FDA approved computer aided detection system for mammography. The lifetime Tyrer-Cuzick score is 14.2 % Negative x-ray reports should not delay surgical consultation if a dominant or clinically suspicious mass is present. Not all breast cancers can be identified by mammography. Therefore, we recommend that you continue to perform regular breast self-examination and physical examination and then promptly contact your physician of any concerns or changes. Adenosis and dense breasts may obscure an underlying neoplasm. Assessment: BI-RADS/ACR category 2 mammogram. Benign Findings. Recommendation Routine screening mammogram of both breasts in 1 year. Electronically Signed By: Archie Roca DO 01/09/21 [id number]
== END ==
LOC: M WHC 14:25
PROVIDERS: ATTEND Obstetrics & Gynecology
DX: Z12.31 Encounter for screening mammogram for malignant neoplasm of breast (principal)

== ENCOUNTER → 2021-10-10 | Outpatient (REF) | payer MEDICARE, OTHER ==
[2021-10-10 11:13] LABS: BASO % 0.6 % (0.0-1.0); EOS # 0.1 10^3/uL (0.0-0.5); EOS % 2.7 % (0.0-3.0); HEMATOCRIT 40.4 % (36.0-47.0); LYMPH # 1.8 10^3/uL (1.5-5.0); LYMPH % 36.8 % (24.0-44.0); MEAN CORPUSCULAR HEMOGLOBIN 30.7 pg (27.0-33.0); MEAN CORPUSCULAR HGB CONC 32.2 g/dl (32.0-36.5); MEAN CORPUSCULAR VOLUME 95.3 fl (80.0-96.0); MONO # 0.5 10^3/uL (0.0-0.8); MONO % 11.2 % (2.0-8.0); NEUTROPHILS # 2.4 10^3/uL (1.5-8.5); NEUTROPHILS % 48.5 % (36.0-66.0); PLATELET COUNT, AUTOMATED 250 10^3/uL (150-450); RED BLOOD COUNT 4.24 10^6/uL (4.00-5.40); WHITE BLOOD COUNT 4.8 10^3/uL (4.0-10.0)
[2021-10-10 12:21] LABS: ALBUMIN 3.8 GM/DL (3.2-5.2); ALT/SGPT 25 U/L (12-78); BILIRUBIN,TOTAL 0.4 MG/DL (0.2-1.0); BLOOD UREA NITROGEN 16 MG/DL (7-18); CALCIUM LEVEL 9.1 MG/DL (8.8-10.2); CARBON DIOXIDE LEVEL 28 MEQ/L (21-32); CHLORIDE LEVEL 107 MEQ/L (98-107); CHOLESTEROL LEVEL 195 MG/DL (<200); CHOLESTEROL RISK RATIO 3.305 (<5); CREATININE FOR GFR 0.53 MG/DL (0.55-1.30); FREE T4 1.17 NG/DL (0.76-1.46); GLOMERULAR FILTRATION RATE > 60.0 (>45); GLUCOSE, FASTING 99 MG/DL (70-100); HDL CHOLESTEROL 59 MG/DL (>40); LDL CHOLESTEROL 119 MG/DL (<100); NON-HDL-C 136 MG/DL; POTASSIUM SERUM 4.1 MEQ/L (3.5-5.1); SODIUM LEVEL 140 MEQ/L (136-145); TOTAL PROTEIN 6.8 GM/DL (6.4-8.2); TRIGLYCERIDES LEVEL 84 MG/DL (<150)
== END ==
LOC: M SFHCCLAY 07:51
PROVIDERS: ATTEND Family Medicine
DX: E03.9 Hypothyroidism, unspecified (principal); E78.00 Pure hypercholesterolemia, unspecified; J30.9 Allergic rhinitis, unspecified

== ENCOUNTER → 2021-12-19 | Outpatient (CLI) | payer MEDICARE, OTHER | LOC: M SOG 07:57 | PROVIDERS: ATTEND Orthopaedic Surgery Hand Surgery | DX: G56.03 Carpal tunnel syndrome, bilateral upper limbs (principal) ==

== ENCOUNTER → 2022-01-07 | Outpatient (CLI) | payer MEDICARE, OTHER ==
[~2022-01-07] MED LIST: INTR6.5S VG; LEVO75CA2 PO; REST0.05 OU; UBRO50TA PO
== END ==
LOC: M LABSMTC 09:06
PROVIDERS: ATTEND Anesthesiology
DX: Z01.818 Encounter for other preprocedural examination (principal); Z11.52 Encounter for screening for COVID-19

== ENCOUNTER 2022-01-10 07:27 | Day surgery (SDC) | payer MEDICARE, OTHER ==
[~2022-01-10] VITALS: Ht 160 cm; Wt 69.4 kg
[~2022-01-10 07:27] MED LIST changes: +BUPIVACAINE HCL 0.25% 30ML VIAL As Ordered ONE
[2022-01-10] MEDS ORDERED: fentaNYL 100 MCG/2 ML INJECTION As Ordered ONE (07:58)
[2022-01-10] MEDS ORDERED: MIDAZOLAM INJ 2MG/2ML VIAL (J2250 PER 1MG) As Ordered ONE (07:58)
[2022-01-10] MEDS ORDERED: ONDANSETRON 4MG 2ML VIAL As Ordered ONE (07:59)
[2022-01-10] MEDS ORDERED: propofoL 200 MG/20 ML VIAL As Ordered ONE (07:59)
[2022-01-10] MEDS ORDERED: ACETAMINOPHEN 1000MG 100ML IV BTL (OFIRMEV) (J0131 PER 10MG) As Ordered ONE (07:59)
[2022-01-10] MEDS ORDERED: dexameTHASONE 4 MG/ML 1ML VIAL (J1100 PER 1MG) As Ordered ONE (07:59)
[2022-01-10] MEDS ORDERED: LIDOCAINE 2% 100MG/5ML SDV (FOR ANES.) As Ordered ONE (07:59)
[2022-01-10] MEDS ORDERED: GLYCOPYRROLATE INJ 0.2 MG/ML 2 ML VIAL As Ordered ONE (07:59)
[2022-01-10] MEDS ORDERED: LR 1,000 ML IV SCH (08:00)
[2022-01-10] MEDS ORDERED: PHENYLephrine 500MCG 5ML (100MCG/ML) SYRINGE As Ordered ONE (08:59)
[2022-01-10] MEDS ORDERED: KETOROLAC 60MG 2ML VIAL As Ordered ONE (09:03)
[2022-01-10] MEDS ORDERED: KETAMINE HCL 200 MG/20 ML VIAL As Ordered ONE (09:13)
[2022-01-10 09:50] VITALS: BP 128/77
== END 2022-01-10 10:13 | disposition home or self-care (01) ==
LOC: M SDC 07:27
PROVIDERS: ATTEND Orthopaedic Surgery Hand Surgery
DX: G56.02 Carpal tunnel syndrome, left upper limb (principal); J30.1 Allergic rhinitis due to pollen
CPT/HCPCS: 29848; J0131; J1100; J1885; J2250; J2370; J2405; J3010

== ENCOUNTER → 2022-01-30 | Outpatient (CLI) | payer MEDICARE, OTHER ==
[~2022-01-30] MED LIST changes: -BUPIVACAINE HCL 0.25% 30ML VIAL As Ordered ONE
== END ==
LOC: M WHC 13:23
PROVIDERS: ATTEND Obstetrics & Gynecology
DX: Z12.31 Encounter for screening mammogram for malignant neoplasm of breast (principal)

== ENCOUNTER → 2022-04-10 | Outpatient (REF) | payer MEDICARE, OTHER ==
[2022-04-10 18:08] LABS: FREE T4 1.18 NG/DL (0.89-1.76); THYROID STIMULATING HORMONE 1.729 uIU/ML (0.55-4.78)
== END ==
LOC: M SFHCCLAY 13:05
PROVIDERS: ATTEND Family Medicine
DX: E03.9 Hypothyroidism, unspecified (principal)

== ENCOUNTER → 2022-04-23 | Outpatient (CLI) | payer MEDICARE, OTHER ==
[~2022-04-23] MED LIST changes: +CLOB5CR TOP
== END ==
LOC: M LABSMTC 09:42
PROVIDERS: ATTEND Anesthesiology
DX: Z01.812 Encounter for preprocedural laboratory examination (principal); Z11.52 Encounter for screening for COVID-19

== ENCOUNTER → 2022-04-26 | Outpatient (CLI) | payer MEDICARE, OTHER | LOC: M RAD 11:31 | PROVIDERS: ATTEND Family Medicine | DX: E03.9 Hypothyroidism, unspecified (principal) ==

== ENCOUNTER 2022-04-27 07:19 | Day surgery (SDC) | payer MEDICARE, OTHER ==
[~2022-04-27] VITALS: Ht 160 cm; Wt 69.4 kg
[2022-04-27] MEDS ORDERED: BACITRACIN OINTMENT 30GM TUBE As Ordered ONE (07:21)
[2022-04-27] MEDS ORDERED: BUPIVACAINE HCL 0.25% 30ML VIAL As Ordered ONE (07:24)
[2022-04-27] MEDS ORDERED: ONDANSETRON 4MG 2ML VIAL As Ordered ONE (08:35)
[2022-04-27] MEDS ORDERED: fentaNYL 100 MCG/2 ML INJECTION As Ordered ONE (08:35)
[2022-04-27] MEDS ORDERED: LIDOCAINE 2% 100MG/5ML SDV (FOR ANES.) As Ordered ONE (08:35)
[2022-04-27] MEDS ORDERED: MIDAZOLAM INJ 2MG/2ML VIAL As Ordered ONE (08:35)
[2022-04-27] MEDS ORDERED: KETOROLAC 60MG 2ML VIAL As Ordered ONE (08:35)
[2022-04-27] MEDS ORDERED: propofoL 200 MG/20 ML VIAL As Ordered ONE (08:35)
[2022-04-27] MEDS ORDERED: ePHEDrine SULFATE 25 MG/5 ML(5MG/ML) SYRINGE As Ordered ONE (09:06)
[2022-04-27] MEDS ORDERED: fentaNYL 100 MCG/2 ML INJECTION IV PRN (09:20)
[2022-04-27] MEDS ORDERED: ONDANSETRON 4MG 2ML VIAL IV PRN (09:20)
[2022-04-27] MEDS ORDERED: METOCLOPRAMIDE INJ 10MG/2ML VIAL IV PRN (09:20)
[2022-04-27] MEDS ORDERED: LR 1,000 ML IV SCH (09:20)
[2022-04-27] MEDS ORDERED: oxyCODONE 5MG TAB PO PRN (09:20)
[2022-04-27 11:40] VITALS: BP 134/66
== END 2022-04-27 11:44 | disposition home or self-care (01) ==
LOC: M SDC 07:19
PROVIDERS: ATTEND Orthopaedic Surgery Hand Surgery
DX: G56.01 Carpal tunnel syndrome, right upper limb (principal); E03.9 Hypothyroidism, unspecified; M19.041 Primary osteoarthritis, right hand; M19.042 Primary osteoarthritis, left hand; J30.9 Allergic rhinitis, unspecified; Z79.899 Other long term (current) drug therapy
CPT/HCPCS: 29848; J1100; J1885; J2250; J2405; J3010

== ENCOUNTER → 2023-01-08 | Outpatient (REF) | payer MEDICARE, OTHER ==
[2023-01-08 12:05] LABS: HEMATOCRIT 42.4 % (36.0-47.0); PLATELET COUNT, AUTOMATED 295 10^3/uL (150-450); RED BLOOD COUNT 4.51 10^6/uL (4.00-5.40); WHITE BLOOD COUNT 4.8 10^3/uL (4.0-10.0)
[2023-01-08 13:00] LABS: ALBUMIN 4.1 G/DL (3.2-5.2); ALKALINE PHOSPHATASE 113 U/L (46-116); ALT/SGPT 20 U/L (7.0-40); AST/SGOT 22 U/L (<34); BILIRUBIN,TOTAL 0.5 MG/DL (0.3-1.2); BLOOD UREA NITROGEN 16 MG/DL (9-23); CALCIUM LEVEL 9.5 MG/DL (8.3-10.6); CARBON DIOXIDE LEVEL 28 MMOL/L (20-31); CHLORIDE LEVEL 102 MMOL/L (98-107); CHOLESTEROL LEVEL 231 MG/DL (<200); CHOLESTEROL RISK RATIO 3.46 (<5); CREATININE FOR GFR 0.69 MG/DL (0.55-1.30); FREE T4 1.21 NG/DL (0.89-1.76); GLOMERULAR FILTRATION RATE > 60.0 (>45); GLUCOSE, FASTING 100 MG/DL (74-106); HDL CHOLESTEROL 66.6 MG/DL (>40); LDL CHOLESTEROL 143.6 MG/DL (<100); NON-HDL-C 164.4 MG/DL; POTASSIUM SERUM 4.3 MMOL/L (3.5-5.1); SODIUM LEVEL 140 MMOL/L (136-145); THYROID STIMULATING HORMONE 5.743 uIU/ML (0.55-4.78); TOTAL PROTEIN 6.8 G/DL (5.7-8.2); TRIGLYCERIDES LEVEL 104 MG/DL (<150)
== END ==
LOC: M SFHCCLAY 08:20
PROVIDERS: ATTEND Family Medicine
DX: E03.9 Hypothyroidism, unspecified (principal); E78.00 Pure hypercholesterolemia, unspecified; G43.109 Migraine with aura, not intractable, without status migrainosus

== ENCOUNTER → 2023-01-18 | Outpatient (CLI) | payer MEDICARE, OTHER | LOC: M WHC 14:54 | PROVIDERS: ATTEND Obstetrics & Gynecology | DX: Z12.31 Encounter for screening mammogram for malignant neoplasm of breast (principal) ==

== ENCOUNTER → 2023-02-25 | Outpatient (REF) | payer MEDICARE, OTHER ==
[2023-02-25 12:33] LABS: CHOLESTEROL RISK RATIO 2.43 (<5); HDL CHOLESTEROL 59.2 MG/DL (>40); LDL CHOLESTEROL 72.2 MG/DL (<100); NON-HDL-C 84.8 MG/DL
== END ==
LOC: M SFHCCLAY 07:32
PROVIDERS: ATTEND Family Medicine
DX: E78.00 Pure hypercholesterolemia, unspecified (principal)

== ENCOUNTER → 2023-08-23 | Outpatient (REF) | payer MEDICARE, OTHER ==
[2023-08-23 13:05] LABS: THYROID STIMULATING HORMONE 0.942 uIU/ML (0.55-4.78)
[2023-08-23 13:06] LABS: FREE T4 1.34 NG/DL (0.89-1.76)
== END ==
LOC: M SFHCCLAY 08:13
PROVIDERS: ATTEND Family Medicine
DX: E03.9 Hypothyroidism, unspecified (principal)

== ENCOUNTER 2023-11-04 02:21 | Emergency (ER) | payer MEDICARE, OTHER ==
[~2023-11-04] VITALS: Ht 160 cm; Wt 72.8 kg
[2023-11-04 02:22] VITALS: BP 153/77; TEMP 97.5; O2SAT 97
[2023-11-04] MEDS: KETOROLAC TROMETHAMINE 10 MG TAB PO ONE (04:28)
[2023-11-04 04:41] LABS: BASO % 0.6 % (0.0-1.0); EOS # 0.1 10^3/uL (0.0-0.5); EOS % 1.8 % (0.0-3.0); HEMATOCRIT 39.4 % (36.0-47.0); LYMPH # 1.8 10^3/uL (1.5-5.0); LYMPH % 26.9 % (24.0-44.0); MEAN CORPUSCULAR HEMOGLOBIN 31.3 pg (27.0-33.0); MEAN CORPUSCULAR VOLUME 94.9 fl (80.0-96.0); MONO # 0.7 10^3/uL (0.0-0.8); MONO % 9.8 % (2.0-8.0); NEUTROPHILS % 60.7 % (36.0-66.0); PLATELET COUNT, AUTOMATED 261 10^3/uL (150-450); RED BLOOD COUNT 4.15 10^6/uL (4.00-5.40); WHITE BLOOD COUNT 6.6 10^3/uL (4.0-10.0)
[2023-11-04 04:55] LABS: ERYTHROCYTE SEDIMENTATION RATE 19 mm/hr (0-30)
[2023-11-04 05:08] LABS: C REACTIVE PROTEIN QUANTITATIV < 0.40 MG/DL (<1.0)
[2023-11-04 05:09] LABS: BLOOD UREA NITROGEN 14 MG/DL (9-23); CALCIUM LEVEL 9.1 MG/DL (8.3-10.6); CARBON DIOXIDE LEVEL 27 MMOL/L (20-31); CHLORIDE LEVEL 111 MMOL/L (98-107); CREATININE FOR GFR 0.53 MG/DL (0.55-1.30); GLOMERULAR FILTRATION RATE > 60.0 (>45); GLUCOSE, FASTING 98 MG/DL (74-106); POTASSIUM SERUM 3.8 MMOL/L (3.5-5.1); SODIUM LEVEL 141 MMOL/L (136-145)
[2023-11-04] MEDS ORDERED: NAPR-837 PO (05:58)
== END 2023-11-04 08:52 | disposition home or self-care (01) ==
LOC: M ED 02:21
DX: M10.071 Idiopathic gout, right ankle and foot (principal); E78.5 Hyperlipidemia, unspecified; E03.9 Hypothyroidism, unspecified; G56.03 Carpal tunnel syndrome, bilateral upper limbs; Z91.048 Other nonmedicinal substance allergy status; Z79.899 Other long term (current) drug therapy

== ENCOUNTER 2024-01-09 11:04 | Day surgery (SDC) | payer MEDICARE, OTHER ==
[~2024-01-09] VITALS: Ht 160 cm; Wt 70.9 kg
[~2024-01-09 11:04] MED LIST changes: +LEVO88TA3 PO; +NAPR-837 PO; +NS 250 ML IV ONE
[2024-01-09] MEDS ORDERED: propofoL 200 MG/20 ML VIAL As Ordered ONE (11:16)
[2024-01-09] MEDS ORDERED: LIDOCAINE 2% 100MG/5ML SDV (FOR ANES.) As Ordered ONE (11:16)
[2024-01-09 12:26] VITALS: TEMP 97.4
[2024-01-09 12:46] VITALS: BP 132/63; O2SAT 98
== END 2024-01-09 12:59 | disposition home or self-care (01) ==
LOC: M OPP 11:04
PROVIDERS: ATTEND Surgery
DX: Z12.11 Encounter for screening for malignant neoplasm of colon (principal); Z12.12 Encounter for screening for malignant neoplasm of rectum; K63.5 Polyp of colon; K57.30 Diverticulosis of large intestine without perforation or abscess without bleeding; E03.9 Hypothyroidism, unspecified; K21.9 Gastro-esophageal reflux disease without esophagitis; E78.00 Pure hypercholesterolemia, unspecified; Z79.899 Other long term (current) drug therapy; Z79.890 Hormone replacement therapy; G43.909 Migraine, unspecified, not intractable, without status migrainosus

== ENCOUNTER → 2024-01-15 | Outpatient (REF) | payer MEDICARE, OTHER ==
[~2024-01-15] MED LIST changes: -NS 250 ML IV ONE
[2024-01-15 13:12] LABS: ALBUMIN 3.8 G/DL (3.2-5.2); ALKALINE PHOSPHATASE 117 U/L (35-104); ALT/SGPT 20 U/L (7.0-40); AST/SGOT 17 U/L (<34); BILIRUBIN,TOTAL 0.6 MG/DL (0.3-1.2); BLOOD UREA NITROGEN 13 MG/DL (9-23); CALCIUM LEVEL 9.6 MG/DL (8.3-10.6); CARBON DIOXIDE LEVEL 27 MMOL/L (20-31); CHLORIDE LEVEL 107 MMOL/L (98-107); CHOLESTEROL LEVEL 229 MG/DL (<200); CHOLESTEROL RISK RATIO 3.55 (<5); CREATININE FOR GFR 0.61 MG/DL (0.55-1.30); GLOMERULAR FILTRATION RATE > 60.0 (>45); GLUCOSE, FASTING 97 MG/DL (74-106); HDL CHOLESTEROL 64.5 MG/DL (>40); LDL CHOLESTEROL 145.3 MG/DL (<100); NON-HDL-C 164.5 MG/DL; POTASSIUM SERUM 4.1 MMOL/L (3.5-5.1); SODIUM LEVEL 141 MMOL/L (136-145); TOTAL PROTEIN 6.8 G/DL (5.7-8.2); TRIGLYCERIDES LEVEL 96 MG/DL (<150)
[2024-01-15 13:15] LABS: THYROID STIMULATING HORMONE 1.658 uIU/ML (0.55-4.78)
[2024-01-15 13:42] LABS: HEMOGLOBIN A1c 5.5 % (4.0-6.0)
== END ==
LOC: M SFHCCLAY 07:48
PROVIDERS: ATTEND Family Medicine
DX: E03.9 Hypothyroidism, unspecified (principal); E78.00 Pure hypercholesterolemia, unspecified

== ENCOUNTER → 2024-02-27 | Outpatient (CLI) | payer MEDICARE, OTHER | LOC: M WHC 13:21 | PROVIDERS: ATTEND Obstetrics & Gynecology | DX: Z12.31 Encounter for screening mammogram for malignant neoplasm of breast (principal); M81.0 Age-related osteoporosis without current pathological fracture ==

== ENCOUNTER → 2025-01-22 | Outpatient (REF) | payer MEDICARE, OTHER ==
[~2025-01-22] MED LIST changes: -LEVO75CA2 PO; +LEVO75CA3 PO
[2025-01-22 13:46] LABS: ALT/SGPT 19 U/L (7.0-40); AST/SGOT 23 U/L (<34); CALCIUM LEVEL 9.1 MG/DL (8.3-10.6); CARBON DIOXIDE LEVEL 28 MMOL/L (20-31); CHLORIDE LEVEL 105 MMOL/L (98-107); CHOLESTEROL LEVEL 159 MG/DL (<200); CHOLESTEROL RISK RATIO 2.77 (<5); CREATININE FOR GFR 0.65 MG/DL (0.55-1.30); GLOMERULAR FILTRATION RATE > 90.0 (>39); LDL CHOLESTEROL 84.1 MG/DL (<100); NON-HDL-C 101.7 MG/DL; POTASSIUM SERUM 4.0 MMOL/L (3.5-5.1); SODIUM LEVEL 143 MMOL/L (136-145); TRIGLYCERIDES LEVEL 88 MG/DL (<150)
== END ==
LOC: M SFHCCLAY 07:45
PROVIDERS: ATTEND Nurse Practitioner Family
DX: E78.00 Pure hypercholesterolemia, unspecified (principal)

== ENCOUNTER → 2025-03-01 | Outpatient (CLI) | payer MEDICARE, OTHER | LOC: M WHC 17:01 | PROVIDERS: ATTEND Obstetrics & Gynecology | DX: Z12.31 Encounter for screening mammogram for malignant neoplasm of breast (principal) ==